=== PATIENT | male | born 1955 | race Caucasian/White ===

== ENCOUNTER 2019-02-01 08:14 | Outpatient (CLI) | payer BC ==
--- NOTE | 2019-02-01 09:18 | RAD ---
PA AND LATERAL CHEST: HISTORY: Left lower anterior chest pain. FINDINGS: The heart size is normal. The aorta is tortuous. The lungs are well expanded with a plate of linear atelectasis versus scar in the left lung base. No lobar consolidation, pneumothoraces, or pleural e ffusions seen. POS: [facility]
== END 2019-02-01 08:15 | disposition home or self-care (01) ==
LOC: SCSRAD 08:14
PROVIDERS: ATTEND Family Medicine
DX: R07.89 Other chest pain (principal)
CPT/HCPCS: 71046